=== PATIENT | female | born 1965 | race Caucasian/White ===

== ENCOUNTER 2016-10-19 00:13 | Emergency (ER) | payer SELFPAY ==
[~2016-10-19] VITALS: Ht 149.9 cm; Wt 63.5 kg
[2016-10-19 00:15] VITALS: BP 107/46; PULSE 90; RESP 19; TEMP 98.3; O2SAT 96
--- NOTE | 2016-10-19 00:15 | NUR ---
Patient triaged and placed in waiting room. VSS and patient appears in no acute distress at this time. Accompanied by FAMILY, awaiting available bed, and MD notified of need for MSE.
--- NOTE | 2016-10-19 01:00 | NUR ---
BROUGHT BACK TO BED #2, REPORT GIVEN TO GO
--- NOTE | 2016-10-19 01:10 | NUR ---
PT TRANSFERRED TO [place] [id number].
--- NOTE | 2016-10-19 01:30 | NUR ---
Pt c/o headache x2 days with cough and congestions. reports intermittent fevers. pt has been taking cough syrup and tylenol for symptoms. pain scale 6/10.
--- NOTE | 2016-10-19 01:30 | NUR ---
Patient ambulated to ER be 04.
--- NOTE | 2016-10-19 02:10 | NUR ---
ER Dr. Jimenez at bedside examining patient.
[2016-10-19] MEDS ORDERED: ACETAMINOPHEN 325 MG TABLET PO ONE (02:30)
[2016-10-19 03:45] VITALS: BP 113/76; PULSE 80; RESP 19; TEMP 98.4; O2SAT 99
--- NOTE | 2016-10-19 03:45 | NUR ---
Patient given written and verbal discharge instructions and verbalizes understanding. ER MD discussed with patient the results and treatment provided. Patient in stable condition. ID arm band removed. Patient educated on pain management and to follow up with PMD. Pain Scale 0/10. Opportunity for questions provided and answered.
== END 2016-10-19 03:45 | disposition home or self-care (01) ==
LOC: SED 00:13
DX: B34.9 Viral infection, unspecified (principal)
CPT/HCPCS: 36415; 81025; 86710; 99284